=== PATIENT | male | born 1980 | race African-American/Black ===

== ENCOUNTER 2016-08-21 10:33 | Emergency (ER) | payer BC ==
[~2016-08-21] VITALS: Ht 193 cm; Wt 81.6 kg
[~2016-08-21 10:33] MED LIST: CYCLOBENZAPRINE10 MG ORAL; IBUPROFEN600 MG ORAL
[2016-08-21] MEDS ORDERED: NKM (10:48)
[2016-08-21 10:50] VITALS: BP 111/72
[2016-08-21] MEDS ORDERED: Bacitracin Oint UD TOPIC ONE (11:00)
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
[2016-08-21] MEDS ORDERED: TdaP Vaccine 0.5ml Syr IM ONE (11:15)
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
[2016-08-21 11:27] LABS: APPEARANCE,URINE CLEAR; KETONES,URINE NEGATIVE (NEGATIVE); LEUKOCYTE ESTERASE ,URINE NEGATIVE (NEGATIVE); NITRITE,URINE NEGATIVE (NEGATIVE); PH,URINE 6 (4.5-8.0); PROTEIN,URINE 1+ (NEGATIVE); UROBILINOGEN,URINE NORMAL MG/DL (0.0-1.0)
[2016-08-21 11:51] LABS: BACTERIA,URINE OCCASIONAL /HPF; RBC,URINE 0-2 /HPF (0 - 0); SQUAMOUS EPITHELIAL CELL,UR OCCASIONAL /LPF (NONE/OCC); WBC,URINE 0-2 /HPF (0 - 0)
[2016-08-21] MEDS ORDERED: BACITRACIN15 GM TOPIC (12:15)
[2016-08-21] MEDS ORDERED: TRAMADOL HCL50 MG ORAL (12:15)
[2016-08-21] MEDS ORDERED: IBUPROFEN600 MG ORAL (12:15)
[2016-08-21 12:22] VITALS: BP 110/76
== END 2016-08-21 12:25 | disposition home or self-care (01) ==
LOC: EMR 10:58
DX: S30.0XXA Contusion of lower back and pelvis, initial encounter (principal); S70.211A Abrasion, right hip, initial encounter; S80.812A Abrasion, left lower leg, initial encounter; S06.0X1A Concussion with loss of consciousness of 30 minutes or less, initial encounter; V29.9XXA Motorcycle rider (driver) (passenger) injured in unspecified traffic accident, initial encounter; Y93.9 Activity, unspecified; Y92.411 Interstate highway as the place of occurrence of the external cause; Z23 Encounter for immunization; R07.9 Chest pain, unspecified
CPT/HCPCS: 72170; 81003; 90471; 90715; 96372; 99284